=== PATIENT | female | born 1945 | race Hispanic/Latino ===

== ENCOUNTER → 2017-09-08 | Outpatient (CLI) | payer OTHER ==
[~2017-09-08] MED LIST: ALEN35TA31 PO; BRIM5DRO2 OU; BROM3DRO OP; BROM3DRO OS; CEPH500B PO; DORZ10DR14 OU; GENT5DRO OP; LOSA25TA2 PO; LOTE55OS OS; METF-526 PO; METO25TA3 PO; MV-M1TAB46 PO; OXCA150T3 PO; POLYOS OS; PRED5DRO17 OD; REGADENOSON 0.4 MG/5 ML PF SYG IVP SCH; ROSU5TAB PO; XALA2.5OS OU
== END | disposition home or self-care (01) ==
LOC: SHCH 12:43
PROVIDERS: ATTEND Internal Medicine Cardiovascular Disease
DX: I10 Essential (primary) hypertension (principal)
CPT/HCPCS: 78452; 93017; 96374; A9500 ×2; J2785

== ENCOUNTER 2017-12-21 18:25 | Observation (INO) | payer OTHER ==
[~2017-12-21] VITALS: Ht 175.3 cm; Wt 56.4 kg
[~2017-12-21 18:25] MED LIST changes: -ALEN35TA31 PO; -BROM3DRO OS; -CEPH500B PO; -LOTE55OS OS; -MV-M1TAB46 PO; -POLYOS OS; -PRED5DRO17 OD; -REGADENOSON 0.4 MG/5 ML PF SYG IVP SCH
[2017-12-21] MEDS ORDERED: ONDANSETRON ODT 4 MG TAB ONE (19:03)
[2017-12-21 19:05] LABS: CREATININE 0.4 mg/dL (0.5-1.5); POTASSIUM 3.7 mmol/L (3.5-5.1)
[2017-12-21 19:10] LABS: ALBUMIN 4.3 g/dL (3.5-5.0); BILIRUBIN,TOTAL 0.4 mg/dL (0.2-1.0); TOTAL PROTEIN, SERUM 7.7 g/dL (6.0-8.3)
[2017-12-21 19:16] LABS: BASOPHILS % (AUTO) 0.5 % (0.0-5.0); EOSINOPHILS % (AUTO) 0.1 % (0.0-8.0); HEMATOCRIT 40.3 % (36-48); LYMPHOCYTES % (AUTO) 11.4 % (21.0-51.0); MEAN CORPUSCULAR HEMOGLOBIN 30.5 pg (27.0-33.0); MEAN CORPUSCULAR VOLUME 87.1 fL (79-99); MONOCYTES % (AUTO) 3.2 % (3.0-13.0); NEUTROPHILS % (AUTO) 84.8 % (40.0-77.0); PLATELET COUNT (AUTO) 236 K/uL (130-400); RED BLOOD CELL COUNT(AUTO) 4.63 MIL/uL (4.00-5.50); WHITE BLOOD COUNT (AUTO) 12.2 K/uL (4.8-10.8)
[2017-12-21 19:23] LABS: APPEARANCE,URINE Clear (CLEAR); BILIRUBIN,URINE Negative (NEGATIVE); COLOR,URINE Yellow (YELLOW); GLUCOSE, URINE (UA) 250 mg/dL (NEGATIVE); KETONES,URINE >=80 mg/dL (NEGATIVE); LEUKOCYTE ESTERASE ,URINE Moderate (NEGATIVE); NITRATE,URINE Negative (NEGATIVE); OCCULT BLOOD,URINE Negative (NEGATIVE); PROTEIN,URINE Trace (NEGATIVE)
[2017-12-21 19:33] LABS: RBC,URINE 0-1 /HPF (0-1)
[2017-12-21 19:34] LABS: BACTERIA,URINE Few /HPF (None Seen); MUCUS,URINE Few LPF (None Seen); SQUAMOUS EPITHELIAL CELL,UR Few /HPF (0-2)
[2017-12-21] MEDS ORDERED: MECLIZINE HCL 25 MG TABLET ONE (19:35)
[2017-12-21] MEDS ORDERED: METOCLOPRAMIDE 10 MG/2 ML VIAL ONE (20:12)
[2017-12-21] MEDS ORDERED: FAMOTIDINE/PF 20 MG/2 ML VIAL IV ONE (20:51)
[2017-12-21] MEDS ORDERED: SODIUM CHLORIDE 0.9% 1000ML 1,000 ML IV ONE (20:55)
[2017-12-21] MEDS ORDERED: ONDANSETRON HCL 4 MG/2 ML VIAL IVP PRN (21:15)
[2017-12-21] MEDS ORDERED: SODIUM CHLORIDE 0.9% 1000ML 1,000 ML IV SCH ×2 (21:15→23:50)
[2017-12-21 22:48] VITALS: BP 146/65
[2017-12-22] MEDS ORDERED: MAG HYDROX/AL HYDROX/SIMETH ES 30 ML SUSP UDCUP PO PRN
[2017-12-22] MEDS ORDERED: ACETAMINOPHEN 325 MG TAB PO PRN ×2
[2017-12-22] MEDS ORDERED: LIDOCAINE HCL-MPF 1% 2ML VIAL IVP PRN
[2017-12-22] MEDS ORDERED: GLUCAGON 1MG KIT 1 MG ML IM PRN
[2017-12-22] MEDS ORDERED: CEFTRIAXONE 1GM/D5W 50ML 50 ML IV SCH
[2017-12-22] MEDS ORDERED: POTASSIUM CHLORIDE 20MEQ/100ML 100 ML IV PRN
[2017-12-22] MEDS ORDERED: POTASSIUM CHLORIDE 20 MEQ ERTAB PO PRN
[2017-12-22] MEDS ORDERED: DEXTROSE 50%-WATER 50 ML DISP.SYRIN IV PRN
[2017-12-22] MEDS ORDERED: POTASSIUM CHLORIDE 10% ELIXIR 20 MEQ/15 ML UDCUP PO PRN
[2017-12-22] MEDS ORDERED: ONDANSETRON HCL 4 MG/2 ML VIAL IV PRN
[2017-12-22] MEDS ORDERED: HYDRALAZINE HCL 20 MG/ML VIAL IV PRN
[2017-12-22] MEDS ORDERED: CEFTRIAXONE SODIUM 1 GM ONE (00:08)
[2017-12-22] MEDS ORDERED: ONDANSETRON HCL MDV 20ML 2 MG/ML VIAL IVP PRN (00:16)
[2017-12-22] MEDS: CEFTRIAXONE SODIUM 1 GM IVP SCH ×2 (00:29→07:50)
[2017-12-22 04:00] VITALS: BP 146/70
[2017-12-22 04:51] LABS: HEMATOCRIT 38.2 % (36-48); MEAN CORPUSCULAR HEMOGLOBIN 30.3 pg (27.0-33.0); MEAN CORPUSCULAR HGB CONC 34.7 g/dL (32.0-36.0); MEAN CORPUSCULAR VOLUME 87.3 fL (79-99); PLATELET COUNT (AUTO) 226 K/uL (130-400); RED BLOOD CELL COUNT(AUTO) 4.38 MIL/uL (4.00-5.50); WHITE BLOOD COUNT (AUTO) 11.9 K/uL (4.8-10.8)
[2017-12-22 04:52] LABS: CREATININE 0.5 mg/dL (0.5-1.5); POTASSIUM 3.9 mmol/L (3.5-5.1)
[2017-12-22] MEDS: INSULIN HUMULIN R 100 UNIT/ML 3ML SQ SCH ×4 (07:30→20:30)
[2017-12-22 08:00] VITALS: BP 156/74
[2017-12-22] MEDS: FAMOTIDINE 20MG TAB 20 MG TAB PO SCH ×2 (08:44→20:29)
[2017-12-22] MEDS ORDERED: FAMOTIDINE/PF 20 MG/2 ML VIAL IV SCH (09:00)
[2017-12-22] MEDS ORDERED: ALEN35TA31 PO (10:38)
[2017-12-22] MEDS ORDERED: POLYOS OS (10:38)
[2017-12-22] MEDS ORDERED: MV-M1TAB46 PO (10:38)
[2017-12-22] MEDS ORDERED: PRED5DRO17 OD (10:38)
[2017-12-22] MEDS ORDERED: BROM3DRO OS (10:38)
[2017-12-22] MEDS ORDERED: LOTE55OS OS (10:38)
[2017-12-22 10:55] VITALS: BP 147/69
[2017-12-22 16:00] VITALS: BP 124/65
[2017-12-22 20:00] VITALS: BP 148/72
[2017-12-23] VITALS: BP 136/58
[2017-12-23] MEDS: CEFTRIAXONE SODIUM 1 GM IVP SCH (00:01)
[2017-12-23 04:00] VITALS: BP 136/72
[2017-12-23] MEDS: INSULIN HUMULIN R 100 UNIT/ML 3ML SQ SCH (06:44)
[2017-12-23] MEDS ORDERED: CEPH500B PO (08:24)
[2017-12-23 08:27] VITALS: BP 164/69
[2017-12-23] MEDS ORDERED: POLYMYXIN B OS SCH (09:00)
[2017-12-23] MEDS ORDERED: DORZOLAMIDE HCL/TIMOLOL MALEAT DROPS 10 ML BOTTLE OU SCH (09:00)
[2017-12-23] MEDS ORDERED: PROLENSA OS SCH (09:00)
[2017-12-23] MEDS ORDERED: WOMENS VITAMIN PO SCH (09:00)
[2017-12-23] MEDS ORDERED: TRIMETHOPRIM OS SCH (09:00)
[2017-12-23] MEDS ORDERED: BRIMONIDINE TARTRATE 0.2% 5 ML BOTTLE OU SCH (09:00)
[2017-12-23] MEDS ORDERED: LOTEMAX OS SCH (09:00)
[2017-12-23] MEDS ORDERED: ALENDRONATE SODIUM 35 MG TAB PO SCH (09:00)
[2017-12-23] MEDS ORDERED: METOPROLOL TARTRATE 25 MG TAB PO SCH (09:00)
[2017-12-23] MEDS ORDERED: LOSARTAN 50 MG TABLET PO SCH (09:00)
[2017-12-23] MEDS ORDERED: PREDNISOLONE ACETATE 1% 5ML DROPS.SUSP OD SCH (09:00)
[2017-12-23] MEDS ORDERED: TRILEPTAL PO SCH (09:00)
[2017-12-23] MEDS ORDERED: METFORMIN HCL 500 MG TAB.SR.24H PO SCH (09:00)
[2017-12-23] MEDS: FAMOTIDINE 20MG TAB 20 MG TAB PO SCH (09:39)
[2017-12-23 11:57] VITALS: BP 130/55
[2017-12-23] MEDS ORDERED: LATANOPROST 2.5 ML DROPS OU SCH (21:00)
[2017-12-23] MEDS ORDERED: ATORVASTATIN CALCIUM 10 MG TABLET PO SCH (21:00)
== END 2017-12-23 11:40 | disposition home or self-care (01) ==
LOC: EDH 18:25 → EDHIP 20:20 → 3BH 22:49
PROVIDERS: ADMIT Internal Medicine; ATTEND Internal Medicine
DX: R11.2 Nausea with vomiting, unspecified (principal); I10 Essential (primary) hypertension; E78.5 Hyperlipidemia, unspecified; E11.9 Type 2 diabetes mellitus without complications; N39.0 Urinary tract infection, site not specified
CPT/HCPCS: 36415 ×2; 70450; 80048; 80053; 81001; 82948 ×7; 83605 ×2; 85025; 85027; 93005; 96361; 96374; 96376; 99285; A4218 ×2; G0378 ×39; J0696 ×3; J2765; J3490; J7030; J7510

== ENCOUNTER → 2018-05-08 | Outpatient (CLI) | payer OTHER ==
[~2018-05-08] MED LIST changes: +ALEN35TA31 PO; -BROM3DRO OP; +BROM3DRO OS; +CEPH500B PO; -GENT5DRO OP; +LOTE55OS OS; +MV-M1TAB46 PO; +POLYOS OS; +PRED5DRO17 OD
== END | disposition home or self-care (01) ==
LOC: OIH 14:01
PROVIDERS: ATTEND Internal Medicine Cardiovascular Disease
DX: Z13.6 Encounter for screening for cardiovascular disorders (principal)
CPT/HCPCS: 75571

== ENCOUNTER 2019-08-06 10:43 | Emergency (ER) | payer OTHER ==
[~2019-08-06 10:43] MED LIST changes: +ALEN35TA23 PO; -ALEN35TA31 PO
[2019-08-06] MEDS ORDERED: ONDANSETRON HCL 4 MG/2 ML VIAL ONE (11:02)
[2019-08-06 11:15] LABS: BASOPHILS % (AUTO) 0.5 % (0.0-5.0); EOSINOPHILS % (AUTO) 0.7 % (0.0-8.0); HEMATOCRIT 38.2 % (36-48); LYMPHOCYTES % (AUTO) 20.7 % (21.0-51.0); MEAN CORPUSCULAR HEMOGLOBIN 29.6 pg (27.0-33.0); MEAN CORPUSCULAR HGB CONC 33.5 g/dL (32.0-36.0); MEAN CORPUSCULAR VOLUME 88.4 fL (79-99); NEUTROPHILS % (AUTO) 71.8 % (40.0-77.0); PLATELET COUNT (AUTO) 239 K/uL (130-400); RED BLOOD CELL COUNT(AUTO) 4.32 MIL/uL (4.00-5.50); RED CELL DISTRIBUTION WIDTH 13.6 % (11.0-15.5); WHITE BLOOD COUNT (AUTO) 9.2 K/uL (4.8-10.8)
[2019-08-06 11:37] LABS: CREATININE 1.6 mg/dL (0.5-1.5); POTASSIUM 4.6 mmol/L (3.5-5.1)
[2019-08-06 11:42] LABS: ALBUMIN 4.4 g/dL (3.5-5.0); BILIRUBIN,TOTAL 0.4 mg/dL (0.2-1.0); TOTAL PROTEIN, SERUM 7.8 g/dL (6.0-8.3)
[2019-08-06 13:21] LABS: BILIRUBIN,URINE Negative (NEGATIVE); COLOR,URINE Yellow (YELLOW); GLUCOSE, URINE (UA) Negative (NEGATIVE); KETONES,URINE Trace mg/dL (NEGATIVE); LEUKOCYTE ESTERASE ,URINE Trace (NEGATIVE); NITRATE,URINE Negative (NEGATIVE); OCCULT BLOOD,URINE Trace (NEGATIVE); PROTEIN,URINE POS 2+ mg/dL (NEGATIVE)
[2019-08-06 13:23] LABS: APPEARANCE,URINE CLOUDY (CLEAR)
[2019-08-06 13:31] LABS: BACTERIA,URINE Moderate /HPF (None Seen); RBC,URINE 0-1 /HPF (0-1)
[2019-08-06] MEDS ORDERED: CEFTRIAXONE SODIUM 1 GM IVP SCH (14:15)
[2019-08-06] MEDS ORDERED: CEFTRIAXONE SODIUM 1 GM ONE (14:24)
[2019-08-10] MEDS ORDERED: ROSU20TA31 PO (11:22)
[2019-08-10] MEDS ORDERED: PRED5DRO25 OU (11:22)
[2019-08-10] MEDS ORDERED: OXCA150T27 PO ×2 (13:42)
[2019-08-10] MEDS ORDERED: LOSA50TA64 PO (13:42)
== END 2019-08-06 14:40 | disposition home or self-care (01) ==
LOC: EDH 10:43
DX: N39.0 Urinary tract infection, site not specified (principal); R11.2 Nausea with vomiting, unspecified; E11.9 Type 2 diabetes mellitus without complications; I10 Essential (primary) hypertension; E78.5 Hyperlipidemia, unspecified
CPT/HCPCS: 36415; 80053; 81001; 82150; 83690; 85025; 87077; 87088; 87186; 87804 ×2; 93005; 96374; 96375; 99283; J0696; J2405

== ENCOUNTER → 2020-07-01 | Outpatient (CLI) | payer OTHER ==
[~2020-07-01] MED LIST changes: -ALEN35TA23 PO; +AMLO5TAB4 PO; -BROM3DRO OS; -CEPH500B PO; -LOSA25TA2 PO; -LOTE55OS OS; -METF-526 PO; -MV-M1TAB46 PO; +OXCA150T27 PO; -OXCA150T3 PO; -PRED5DRO17 OD; +PRED5DRO25 OU; +ROSU20TA31 PO; -ROSU5TAB PO
== END | disposition home or self-care (01) ==
LOC: RAH 12:50
PROVIDERS: ATTEND Podiatrist
DX: M19.071 Primary osteoarthritis, right ankle and foot (principal); M25.774 Osteophyte, right foot
CPT/HCPCS: 73630

== ENCOUNTER → 2021-08-13 | Outpatient (CLI) | payer MEDICARE | END | disposition home or self-care (01) | LOC: RAH 14:21 | PROVIDERS: ATTEND Internal Medicine | DX: I67.2 Cerebral atherosclerosis (principal); I70.0 Atherosclerosis of aorta; I73.9 Peripheral vascular disease, unspecified; I25.119 Atherosclerotic heart disease of native coronary artery with unspecified angina pectoris; Q87.40 Marfan syndrome, unspecified | CPT/HCPCS: 93880 ==

== ENCOUNTER → 2022-06-22 | Outpatient (CLI) | payer MEDICARE | END | disposition home or self-care (01) | LOC: RAH 08:47 | PROVIDERS: ATTEND Internal Medicine | DX: R10.31 Right lower quadrant pain (principal); R93.89 Abnormal findings on diagnostic imaging of other specified body structures | CPT/HCPCS: 74176 ==

== ENCOUNTER → 2022-09-27 | Outpatient (CLI) | payer MEDICARE | END | disposition home or self-care (01) | LOC: RAH 10:30 | PROVIDERS: ATTEND Internal Medicine | DX: M19.011 Primary osteoarthritis, right shoulder (principal) | CPT/HCPCS: 73030 ==

== ENCOUNTER → 2023-09-23 | Outpatient (CLI) | payer MEDICARE ==
[~2023-09-23] MED LIST changes: -DORZ10DR14 OU; +DORZ10DR32 OU; -ROSU20TA31 PO; +ROSU20TA73 PO
== END | disposition home or self-care (01) ==
LOC: RAH 14:00
PROVIDERS: ATTEND Internal Medicine
DX: R22.1 Localized swelling, mass and lump, neck (principal)
CPT/HCPCS: 76536